=== PATIENT | male | born 1945 | race Caucasian/White ===

== ENCOUNTER 2017-04-28 23:16 | Inpatient (IN) ==
[2017-04-28] MEDS ORDERED: Ipratropium/Albuterol Neb 3 ML IH STA (23:33)
[2017-04-28] MEDS ORDERED: Ipratropium/Albuterol Neb 3 ML ONE (23:33)
[2017-04-28] MEDS ORDERED: methylPREDNISolone 125 MG/2 ML VIAL ONE (23:33)
[2017-04-28] MEDS ORDERED: methylPREDNISolone 125 MG/2 ML VIAL IVP ONE (23:33)
--- NOTE | 2017-04-28 23:38 | Emergency Department Note ---
Disposition Clinical Impression: COPD with exacerbation, Acute exacerbation of chronic obstructive airways disease, Acute respiratory failure with hypoxemia Leukocytosis, unspecified Qualifiers: Leukocytosis type: bandemia Qualified Code(s): D72.825 - Bandemia Disposition: Admitted As Inpatient Condition: Fair Referrals: NONE,PCP [Non-Partnered Physician] - Forms: ED Satisfaction Letter Time of Disposition: 02:22 (Dr Encinas) SOB HPI - General Chief Complaint: ED Shortness of Breath/Dyspnea Stated Complaint: Dyspnea onset 2-3 days, worse today Time Seen by Provider: 04/28/17 23:29 Source: patient Mode of arrival: EMS Limitations: no limitations Nursing Notes Reviewed: Yes Vital Signs Reviewed: Yes - History of Present Illness Pt Subjective Complaint: shortness of breath Onset (ago): day(s) (2) Context: recent illness Severity: severe Consistency/Duration: gradually worsening Improves with: oxygen, bronchodilators, upright position Worsens with: exertion Known history of: COPD Associated symptoms: Reports: wheezing. Denies: chest pain, pain with inspiration, fever, cough, sputum production Treatment prior to arrival: oxygen, NIPPV Cough present: Yes Cough Description: Involuntary Cough Frequency: Intermittent Sputum production: No - Related Data Home Medications Medication Instructions Recorded Confirmed Aspirin 325 mg PO DAILY 05/31/16 04/29/17 Atorvastatin [Lipitor] 80 mg PO DAILY 09/06/16 04/29/17 amLODIPine [Norvasc] 5 mg PO DAILY 09/06/16 04/29/17 Albuterol Sulfate [Ventolin Hfa] 2 puff IH Q4H PRN 09/14/16 04/05/17 Apixaban [Eliquis] 5 mg PO DAILY 12/09/16 04/29/17 BuPROPion XL (24 HR) [Wellbutrin 150 mg PO DAILY 04/29/17 04/29/17 XL] Buspirone HCl [Buspar] 10 mg PO BID 04/29/17 04/29/17 Esomeprazole Magnesium [Nexium 20 mg PO 04/29/17 24Hr] Isosorbide MONOnitrate [Isosorbide 30 mg PO DAILY 04/29/17 04/29/17 Mononitrate] Tamsulosin [Flomax] 0.4 mg PO DAILY 04/29/17 04/29/17 Previous Rx's Medication Instructions Recorded Ipratropium/Albuterol Neb [Duoneb] 3 ml IH Q4HR 30 Days inhsol 06/04/16 Metoprolol [Lopressor] 25 mg PO BID #60 tablet 09/28/16 Allergies Allergy/AdvReac Type Severity Reaction Status Date / Time No Known Allergies Allergy Verified 04/05/17 16:08 All systems ED: reviewed and negative except as stated. Past Medical History - Past Medical History Medical history: Reports: atrial fibrillation, COPD, GERD, hyperlipidemia, hypertension, myocardial infarction Surgical history: Reports: angioplasty/stent, other Psychiatric history: Reports: no psych history - Social History Smoking Status: Former smoker Smokeless Tobacco Status: No Alcohol use: Reports: none Drug use: Reports: none Physical Exam - General Limitations: no limitations, language barrier General appearance: alert, in distress - Head Head exam: atraumatic, normocephalic - Eye Eye exam: Present: normal appearance, PERRL, EOMI. Absent: scleral icterus, conjunctival injection - ENT ENT exam: normal exam, normal oropharynx - Neck Neck exam: Present: normal inspection, full ROM, trachea midline. Absent: thyromegaly - Chest Chest inspection: Present: normal inspection, symmetric chest wall rise - Respiratory Respiratory exam: Present: respiratory distress - Expanded Respiratory Exam Location: rhonchi: Right, Upper, decreased breath sounds: Left, Right, Upper, Lower - Cardiovascular Cardiovascular exam: Present: tachycardia, normal heart sounds. Absent: JVD - Abdominal Exam Abdominal exam: Present: soft, Non-Tender, distention, hypoactive bowel sounds - Extremities Exam Extremities exam: Present: normal inspection, full ROM - Neurological Exam Neurological exam: Present: alert, oriented X3 - Skin Skin exam: Present: warm, dry, intact Course - Reevaluation(s) Reevaluation #1: Initial DuoNeb treatment with BiPAP improved his aeration but still had significant work of breathing. ABG indicates respiratory acidosis. Plan will be to increase his expiratory pressure 272 increase by mouth to levels and reassess. I did discuss with the that there is potential intubation if he becomes fatigued with no improvement with the current BiPAP treatment. Time: 00:48 Reevaluation #2: Improve work of breathing. ABG shows improved pH as well as bicarbonate and PCO2 levels. The patient will be started on Valtrex and will be admitted to the hospital for further stabilization of his acute respiratory acidosis most likely secondary to COPD exacerbation. Time: 01:45 Vital Signs O2 Sat by Pulse Oximetry 90 04/28/17 23:25 Temperature 97.3 F L 04/28/17 23:27 Pulse Rate 121 04/29/17 01:00 Respiratory Rate 34 04/29/17 01:00 Blood Pressure 105/49 04/29/17 01:00 O2 Sat by Pulse Oximetry 98 04/29/17 00:30 Oxygen Delivery Oxygen Delivery Bipap Procedures - ABG Interpretation ABG Interpretation 1 Interpretation: respiratory acidosis Shortness of Breath/Dyspnea - Differential Diagnosis Likely: acute exacerbation of chronic obstructive airways disease - Medical Records Medical records reviewed: Yes I reviewed the patient's medical records. - Lab Data Result diagrams: 04/29/17 00:25 04/29/17 00:25 Lab Results 04/29/17 04/29/17 04/29/17 Range/Units 00:25 00:25 00:25 WBC 30.0 H* (4.3-11.1) K/mcL RBC 4.36 (4.19-5.50) M/mcL Hgb 13.1 (12.9-16.9) g/dL Hct 40.7 (37.5-50.1) % MCV 93.3 (83.0-100.0) fL MCH 30.0 (28.0-33.3) pg MCHC 32.2 (31.6-35.5) g/dL RDW 15.1 H (11.5-14.5) % Plt Count 267 (140-400) K/mcL MPV 11.5 (9.4-12.4) fL Seg Neutrophils % 57.0 % Band Neutrophils % 12.0 H (0-4) % Lymphocytes % 18.0 % Monocytes % 7.0 % Eosinophils % 4.0 % Basophils % 1.0 % Myelocytes % 1.0 H (0) % Neutrophils # 20.7 H (1.6-8.9) K/mcL Lymphocytes # 5.4 H (0.6-4.6) K/mcL Monocytes # 2.1 H (0.0-1.3) K/mcL Eosinophils # 1.2 H (0.0-0.6) K/mcL Basophils # 0.3 H (0.0-0.2) K/mcL Nucleated RBCs/100 WBC 0.1 H (0) /100 WBC Toxic Granulation Present A (Not Present) Toxic Vacuolation Present A (Not Present) Platelet Estimate Normal (Normal) Large Platelets Present A (Not Present) Poikilocytosis 1+ A (Not Present) Anisocytosis 1+ A (Not Present) Sample Site ABG pH (7.32-7.45) pH Units ABG pCO2 (35-45) mmHg ABG pO2 (85-104) mmHg ABG HCO3 (21-27) mEq/L ABG Total CO2 (20-26) mEq/L ABG O2 Saturation (95-98) % ABG Base Excess (-2 to 3) mEq/L Roberth Test O2 Delivery Device Inspired O2 (1-15=lpm [id number]=%) Sodium (136-145) mEq/L Potassium (3.5-5.1) mEq/L Chloride (98-107) mEq/L Carbon Dioxide (23-29) mEq/L BUN (8-23) mg/dL Creatinine (0.70-1.30) mg/dL Est GFR ( Amer) (> 60) Est GFR (Non-Af Amer) (> 60) BUN/Creatinine Ratio (6-26) Glucose (70-105) mg/dL Calculated Osmolality (280-300) Lactic Acid (0.5-2.2) mmol/L Calcium (8.6-10.3) mg/dL Total Bilirubin (0.3-1.0) mg/dL AST (13-39) Units/L ALT (7-52) Units/L Alkaline Phosphatase (34-104) Units/L Troponin I < 0.03 (< 0.04) ng/mL B-Natriuretic Peptide 138 H (Less than 100) pg/mL Serum Total Protein (6.4-8.9) g/dL Albumin (3.5-5.7) g/dL Globulin (2.4-3.5) g/dL Albumin/Globulin Ratio (1.1-2.2) Person Notif of Crit 04/29/17 04/29/17 04/29/17 Range/Units 00:25 00:27 01:34 WBC (4.3-11.1) K/mcL RBC (4.19-5.50) M/mcL Hgb (12.9-16.9) g/dL Hct (37.5-50.1) % MCV (83.0-100.0) fL MCH (28.0-33.3) pg MCHC (31.6-35.5) g/dL RDW (11.5-14.5) % Plt Count (140-400) K/mcL MPV (9.4-12.4) fL Seg Neutrophils % % Band Neutrophils % (0-4) % Lymphocytes % % Monocytes % % Eosinophils % % Basophils % % Myelocytes % (0) % Neutrophils # (1.6-8.9) K/mcL Lymphocytes # (0.6-4.6) K/mcL Monocytes # (0.0-1.3) K/mcL Eosinophils # (0.0-0.6) K/mcL Basophils # (0.0-0.2) K/mcL Nucleated RBCs/100 WBC (0) /100 WBC Toxic Granulation (Not Present) Toxic Vacuolation (Not Present) Platelet Estimate (Normal) Large Platelets (Not Present) Poikilocytosis (Not Present) Anisocytosis (Not Present) Sample Site L Radial L Radial ABG pH 7.18 L* 7.27 L (7.32-7.45) pH Units ABG pCO2 72 H* 55 H (35-45) mmHg ABG pO2 54 L 132 H D (85-104) mmHg ABG HCO3 27 25 (21-27) mEq/L ABG Total CO2 29 H 27 H (20-26) mEq/L ABG O2 Saturation 77 L 98 (95-98) % ABG Base Excess -4 L -3 L (-2 to 3) mEq/L Roberth Test Positive Positive O2 Delivery Device BiPAP BiPAP Inspired O2 36.0 36.0 (1-15=lpm [id number]=%) Sodium 136 (136-145) mEq/L Potassium 4.1 (3.5-5.1) mEq/L Chloride 101 (98-107) mEq/L Carbon Dioxide 27 (23-29) mEq/L BUN 12 (8-23) mg/dL Creatinine 1.51 H (0.70-1.30) mg/dL Est GFR ( Amer) 55 L (> 60) Est GFR (Non-Af Amer) 46 L (> 60) BUN/Creatinine Ratio 8 (6-26) Glucose 172 H (70-105) mg/dL Calculated Osmolality 286 (280-300) Lactic Acid (0.5-2.2) mmol/L Calcium 9.9 (8.6-10.3) mg/dL Total Bilirubin 1.1 H (0.3-1.0) mg/dL AST 17 (13-39) Units/L ALT 10 (7-52) Units/L Alkaline Phosphatase 242 H (34-104) Units/L Troponin I (< 0.04) ng/mL B-Natriuretic Peptide (Less than 100) pg/mL Serum Total Protein 6.4 (6.4-8.9) g/dL Albumin 4.1 (3.5-5.7) g/dL Globulin 2.3 L (2.4-3.5) g/dL Albumin/Globulin Ratio 1.8 (1.1-2.2) Person Notif of Crit dr. sena 04/29/17 Range/Units 01:35 WBC (4.3-11.1) K/mcL RBC (4.19-5.50) M/mcL Hgb (12.9-16.9) g/dL Hct (37.5-50.1) % MCV (83.0-100.0) fL MCH (28.0-33.3) pg MCHC (31.6-35.5) g/dL RDW (11.5-14.5) % Plt Count (140-400) K/mcL MPV (9.4-12.4) fL Seg Neutrophils % % Band Neutrophils % (0-4) % Lymphocytes % % Monocytes % % Eosinophils % % Basophils % % Myelocytes % (0) % Neutrophils # (1.6-8.9) K/mcL Lymphocytes # (0.6-4.6) K/mcL Monocytes # (0.0-1.3) K/mcL Eosinophils # (0.0-0.6) K/mcL Basophils # (0.0-0.2) K/mcL Nucleated RBCs/100 WBC (0) /100 WBC Toxic Granulation (Not Present) Toxic Vacuolation (Not Present) Platelet Estimate (Normal) Large Platelets (Not Present) Poikilocytosis (Not Present) Anisocytosis (Not Present) Sample Site ABG pH (7.32-7.45) pH Units ABG pCO2 (35-45) mmHg ABG pO2 (85-104) mmHg ABG HCO3 (21-27) mEq/L ABG Total CO2 (20-26) mEq/L ABG O2 Saturation (95-98) % ABG Base Excess (-2 to 3) mEq/L Roberth Test O2 Delivery Device Inspired O2 (1-15=lpm [id number]=%) Sodium (136-145) mEq/L Potassium (3.5-5.1) mEq/L Chloride (98-107) mEq/L Carbon Dioxide (23-29) mEq/L BUN (8-23) mg/dL Creatinine (0.70-1.30) mg/dL Est GFR ( Amer) (> 60) Est GFR (Non-Af Amer) (> 60) BUN/Creatinine Ratio (6-26) Glucose (70-105) mg/dL Calculated Osmolality (280-300) Lactic Acid 2.6 H (0.5-2.2) mmol/L Calcium (8.6-10.3) mg/dL Total Bilirubin (0.3-1.0) mg/dL AST (13-39) Units/L ALT (7-52) Units/L Alkaline Phosphatase (34-104) Units/L Troponin I (< 0.04) ng/mL B-Natriuretic Peptide (Less than 100) pg/mL Serum Total Protein (6.4-8.9) g/dL Albumin (3.5-5.7) g/dL Globulin (2.4-3.5) g/dL Albumin/Globulin Ratio (1.1-2.2) Person Notif of Crit - Radiology Data Radiology results reviewed: Yes I reviewed the patient's radiology results. Abdomen X-Ray 04/29/17 00:00 IMPRESSION: Mild distal colonic stool with moderate proximal colonic distention . No small bowel distention or evidence of obstruction. D/ / Sukumar Hay MD / Sukumar Hay MD Interpreting Provider: Sukumar Hay MD Chest X-Ray 04/29/17 00:00 IMPRESSION: No acute cardiopulmonary disease. D/ / Sukumar Hay MD / Sukumar Hay MD Interpreting Provider: Sukumar Hay MD - EKG Data EKG attestation: Yes I reviewed and interpreted this EKG. Rate: Reports: tachycardia Rhythm: Reports: NSR When compared to previous EKG there are: no significant changes Interpretation: Reports: nonspecific ST-T wave changes Critical Care Time Critical Care Time: Yes Total Critical Care Time: 60 Attestation: Critical care performed: Time is exclusive of separately billable procedures. Time includes: direct patient care, patient reassessment, coordination of patient care, interpretation of data (laboratory data, radiology data, and respiratory data), review of patient's medical records, medical consultation and documentation of patient care. Procedures included in critical care time: Procedures excluded from critical care time:
[2017-04-28] MEDS ORDERED: *HR* LORazepam 2 MG/ML VIAL ONE (23:45)
[2017-04-28] MEDS ORDERED: *HR* LORazepam 2 MG/ML VIAL IVP ONE (23:47)
[2017-04-29] MEDS ORDERED: 0.9 % Sodium Chloride 500 ML ONE ×2 (00:09→01:33)
[2017-04-29 00:31] LABS: ABG Base Excess -4 mEq/L (-2 to 3); ABG HCO3 27 mEq/L (21-27); ABG Oxygen Saturation 77 % (95-98); ABG PCO2 72 mmHg (35-45); ABG PH 7.18 pH Units (7.32-7.45); ABG PO2 54 mmHg (85-104); ABG TCO2 29 mEq/L (20-26)
[2017-04-29 00:34] LABS: Hematocrit 40.7 % (37.5-50.1); Hemoglobin 13.1 g/dL (12.9-16.9); Mean Corpuscular HGB Conc 32.2 g/dL (31.6-35.5); Mean Corpuscular Volume 93.3 fL (83.0-100.0); Mean Platelet Volume 11.5 fL (9.4-12.4); Nucleated Red Blood Cells 0.1 /100 WBC (0); Platelet Count 267 K/mcL (140-400); Red Blood Count 4.36 M/mcL (4.19-5.50); Red Cell Distribution Width 15.1 % (11.5-14.5)
[2017-04-29 00:55] LABS: Albumin 4.1 g/dL (3.5-5.7); Albumin/Globulin Ratio 1.8 (1.1-2.2); Bilirubin,Total 1.1 mg/dL (0.3-1.0); Calcium 9.9 mg/dL (8.6-10.3); Globulin 2.3 g/dL (2.4-3.5); Potassium 4.1 mEq/L (3.5-5.1); Total Protein 6.4 g/dL (6.4-8.9)
[2017-04-29] MEDS ORDERED: *HR* LORazepam 2 MG/ML VIAL IVP STA (00:57)
[2017-04-29 01:01] LABS: Anisocytosis 1+ (Not Present); Basophils # 0.3 K/mcL (0.0-0.2); Eosinophils # 1.2 K/mcL (0.0-0.6); Large Platelets Present (Not Present); Lymphocytes # 5.4 K/mcL (0.6-4.6); Monocytes # 2.1 K/mcL (0.0-1.3); Neutrophils # 20.7 K/mcL (1.6-8.9); Platelet Estimate Normal (Normal)
[2017-04-29 01:02] LABS: Toxic Granulation Present (Not Present); Toxic Vacuolation Present (Not Present)
[2017-04-29 01:03] LABS: Poikilocytosis 1+ (Not Present)
[2017-04-29] MEDS ORDERED: Levofloxacin 750 MG/150 ML 750 MG/150 ML BAG IVPB ONE (01:11)
[2017-04-29 01:37] LABS: ABG Base Excess -3 mEq/L (-2 to 3); ABG HCO3 25 mEq/L (21-27); ABG Oxygen Saturation 98 % (95-98); ABG PCO2 55 mmHg (35-45); ABG PH 7.27 pH Units (7.32-7.45); ABG PO2 132 mmHg (85-104); ABG TCO2 27 mEq/L (20-26)
[2017-04-29] MEDS ORDERED: 0.9 % Sodium Chloride 1,000 ML IVC ONE (02:03)
[2017-04-29] MEDS ORDERED: Levalbuterol Neb 1.25 MG/3 ML IH STA (02:07)
[2017-04-29] MEDS ORDERED: Ondansetron 4 MG/2 ML VIAL IVP PRN (06:09)
[2017-04-29] MEDS ORDERED: Acetaminophen 325 MG TABLET PO PRN (06:09)
[2017-04-29] MEDS ORDERED: 0.9 % Sodium Chloride 1,000 ML IVC SCH (06:09)
[2017-04-29] MEDS ORDERED: Naloxone 0.4 MG/ML INJ IVP PRN (06:09)
[2017-04-29] MEDS ORDERED: *HR* LORazepam 2 MG/ML VIAL ONE (06:09)
[2017-04-29] MEDS ORDERED: methylPREDNISolone 125 MG/2 ML VIAL ONE (06:09)
[2017-04-29] MEDS ORDERED: Ipratropium/Albuterol Neb 3 ML ONE (06:09)
[2017-04-29] MEDS ORDERED: MOM Conc 10 ML UD.LIQ PO PRN (06:09)
[2017-04-29] MEDS ORDERED: methylPREDNISolone 125 MG/2 ML VIAL IVP SCH (07:00)
[2017-04-29] MEDS: Aspirin 325 MG TABLET PO SCH (08:46)
[2017-04-29] MEDS: BuPROPion XL (24 HR) 150 MG TABLET PO SCH (08:46)
[2017-04-29] MEDS: Isosorbide MONOnitrate (24 HR) 30 MG TAB.ER.24H PO SCH (08:46)
[2017-04-29] MEDS: amLODIPine 5 MG TABLET PO SCH (08:47)
[2017-04-29] MEDS: Apixaban 5 MG TABLET PO SCH (08:57)
[2017-04-29] MEDS: *HR* HYDROcodone/Acet 5/325 mg TABLET PO PRN ×2 (08:58→20:56)
[2017-04-29] MEDS ORDERED: BuPROPion XL (24 HR) 150 MG TABLET PO SCH (09:00)
[2017-04-29] MEDS ORDERED: Isosorbide MONOnitrate (24 HR) 30 MG TAB.ER.24H PO SCH (09:00)
[2017-04-29] MEDS ORDERED: amLODIPine 5 MG TABLET PO SCH (09:00)
[2017-04-29] MEDS ORDERED: Apixaban 5 MG TABLET PO SCH (09:00)
[2017-04-29] MEDS ORDERED: Aspirin 325 MG TABLET PO SCH (09:00)
[2017-04-29] MEDS ORDERED: Ipratropium/Albuterol Neb 3 ML IH SCH (11:00)
--- NOTE | 2017-04-29 11:47 | Internal Med History&Physical ---
Date of Encounter: 04/29/17 Time of Encounter: 11:10 Assessment and Plan (1) COPD with exacerbation Current visit: Yes Status: Acute He was given Levaquin in emergency room. We will order chest CT to further evaluate. (2) Leukocytosis Current visit: Yes Status: Acute He was given Levaquin in the emergency room. Will order chest, abdomen, and pelvis CT to further evaluate. Qualifiers: Leukocytosis type: bandemia Qualified Code(s): D72.825 - Bandemia (3) Azotemia Current visit: Yes Status: Acute Creatinine elevated at 1.51 in emergency room. It was normal at 0.79 on 2016. We will recheck labs in a.m. (4) HTN (hypertension) Current visit: No Status: Chronic Continue amlodipine and Lopressor. Qualifiers: Hypertension type: essential hypertension Qualified Code(s): I10 - Essential (primary) hypertension (5) DVT (deep venous thrombosis) Current visit: Yes Status: Acute Continue Eliquis Qualifiers: DVT location: lower extremity Affected thrombotic vein of extremity: unspecified vein of extremity Chronicity: chronic Laterality: unspecified laterality Qualified Code(s): I82.509 - 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 of unspecified lower extremity (6) BPH (benign prostatic hyperplasia) Current visit: Yes Status: Chronic Continue Flomax Qualifiers: Lower urinary tract symptom presence: symptoms absent Qualified Code(s): N40.0 - Benign prostatic hyperplasia without lower urinary tract symptoms Internal Medicine - H&P: HPI Chief complaint: Dyspnea, leukocytosis, azotemia Admitted From: Emergency Dept Plans for Post Hospital Care: Home History of present illness: Mr. Box is a 72 year old male who came to emergency room stating he had onset of dyspnea earlier in the day while doing routine activities. There was no significant cough or chest pain. He was evaluated in emergency room and was felt to have exacerbation of COPD. He was admitted to [facility] floor for ongoing care needs. His respiratory history is significant for having smoked from age [age] up to 3 packs per day. He had spirometry 01/05/2016 which showed FEV1 32% and FVC 52% with ratio of 0.45. He wears oxygen 24/7 at home. He had a lung mass biopsy November 2016 which did not show malignancy. The procedure was completed by pneumothorax. Past Med Surg Social Fam HX - Past Medical History Medical history: atrial fibrillation, COPD, GERD, hyperlipidemia, hypertension, myocardial infarction Psychiatric history: no psych history - Past Surgical History Surgical History: angioplasty/stent, other - Social History Smoking Status: Former smoker Smokeless Tobacco Status: No Alcohol use: none Drug use: none - Family History Mother Living Status: Hx Family Cardiac Disorders: Yes (chf) Brother Living Status: Still Living Hx Family Endocrine Disorder: Yes (dm) Internal Medicine - H&P: Meds Aspirin 81 mg PO DAILY 05/31/16 [History] Ipratropium/Albuterol Neb [Duoneb] 3 ml IH Q4HR 30 Days inhsol 06/04/16 [Rx] Atorvastatin [Lipitor] 80 mg PO DAILY 09/06/16 [History] amLODIPine [Norvasc] 5 mg PO DAILY 09/06/16 [History] Albuterol Sulfate [Ventolin Hfa] 2 puff IH Q4H PRN 09/14/16 [History] Metoprolol [Lopressor] 25 mg PO BID #60 tablet 09/28/16 [Rx] Apixaban [Eliquis] 5 mg PO BID 12/09/16 [History] BuPROPion XL (24 HR) [Wellbutrin XL] 150 mg PO DAILY 04/29/17 [History] Buspirone HCl [Buspar] 10 mg PO BID 04/29/17 [History] Esomeprazole Magnesium [Nexium 24Hr] 40 mg PO DAILY 04/29/17 [History] Isosorbide MONOnitrate [Isosorbide Mononitrate] 30 mg PO DAILY 04/29/17 [History ] Tamsulosin [Flomax] 0.4 mg PO DAILY 04/29/17 [History] 3 Allergy/AdvReac Type Severity Reaction Status Date / Time No Known Allergies Allergy Verified 04/05/17 16:08 All Systems PM: A 10-system review of systems was performed and is negative for pertinent findings except as documented above in the HPI. Review of systems: Gen.: He states his weight has been stable the past few months Cardiovascular: He has history of hypertension and known ASHD status post [place] approximately 2007. 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 He has had aortic endograft done for aortic aneurysm. He had DVT after the CABG surgery and is now on Eliquis. He denies heart failure or pulmonary embolus. He had an echocardiogram 11/16/2016 which showed LVEF of 65%. There was [id number] tricuspid regurgitation and elevated RVSP at 43 mmHg. Respiratory: As per history of present illness GI: He has constipation and GERD. He denies other disorders of his liver gallbladder or exocrine pancreas. He was told in the past he had "abdominal mass " but does not know details. : He denies known kidney or bladder disorders. He had prostate biopsy in the past without malignancy found. He was recently started on Flomax for BPH. He denies chronic kidney disease or known azotemia. Neurologic: He denies large distribution strokes or seizures. Endocrine: He has hyperlipidemia but denies diabetes or thyroid disease Hematology/oncology: He denies blood disorders cancers or anemia Psychiatric: He has anxiety and depression but denies other mental health issues Muscle skeletal: He has DJD. He had a work accident several years ago with injury to his back and fracture of his left foot which required surgical intervention. He denies gout or other bone joint or muscle disorders. - Constitutional Vitals: Temp Pulse Resp BP Pulse Ox 97.4 F L 79 18 106/76 96 04/29/17 10:53 04/29/17 10:53 04/29/17 11:11 04/29/17 10:53 04/29/17 11:11 Exam: Gen.: He is a well-developed well-nourished male lying in bed who appears slightly dyspneic at rest HEENT: Head is atraumatic and normocephalic. Eyes: EOMI. There is no scleral icterus. Mouth: Mucosa is moist. Neck: Supple and nontender. There is no thyromegaly or adenopathy noted. Heart: Regular without murmurs gallops or ectopics Lungs: No wheezes or crackles are heard. He has prolonged expiratory phase but no significant wheezing. Breath sounds are diminished. There is no egophony. Abdomen: Soft and nontender. No masses or guarding are noted. Extremities: There is no cyanosis edema or clubbing noted. Dorsalis pedis and posttibial pulses are 1-2 over 2 bilaterally. He has slight deformity of his left lateral heel area from previous injury with surgery. Neurologic: Mental status: He is talkative and a good historian. Cranial nerves : Smile is symmetric. Forehead wrinkles bilaterally. Tongue protrudes midline. EOMI. Motor: There is no pronator drift. Cerebellar: Finger to nose is intact bilaterally. Skin: Warm and dry Internal Med - H&P Results - Labs CBC & Chem 7: 04/29/17 00:25 04/29/17 00:25
[2017-04-29] MEDS: *HR* LORazepam 1 MG TABLET PO PRN (20:43)
[2017-04-29] MEDS: Lactobacillus 1 EACH CAP.SPRINK PO SCH (20:44)
[2017-04-29] MEDS: Azithromycin 500 MG in D5% in Water 250 ML IVPB SCH (20:44)
[2017-04-30] MEDS: Piperacillin/Tazobactam 3.375 GM in D5% in Water (Mini-Bag+) 100 ML IVPB SCH ×3 (00:47→17:48)
[2017-04-30 06:08] LABS: Basophils % 0.1 %; Hematocrit 34.3 % (37.5-50.1); Hemoglobin 11.2 g/dL (12.9-16.9); Immature Granulocytes % 0.8 % (0-4); Lymphocytes # 1.2 K/mcL (0.6-4.6); Lymphocytes % 5.4 %; Mean Corpuscular HGB Conc 32.7 g/dL (31.6-35.5); Mean Platelet Volume 11.8 fL (9.4-12.4); Monocytes # 1.4 K/mcL (0.0-1.3); Neutrophils # 19.7 K/mcL (1.6-8.9); Platelet Count 182 K/mcL (140-400); Red Blood Count 3.73 M/mcL (4.19-5.50); Red Cell Distribution Width 15.7 % (11.5-14.5); Segmented Neutrophils % 87.7 %
[2017-04-30 06:48] LABS: BUN/Creatinine Ratio 19 (6-26); Blood Urea Nitrogen 19 mg/dL (8-23); Calcium 9.1 mg/dL (8.6-10.3); Carbon Dioxide 27 mEq/L (23-29); Chloride 107 mEq/L (98-107); Glucose 133 mg/dL (70-105); Magnesium 2.3 mg/dL (1.6-2.6); Osmolality,Calculated 296 (280-300); Potassium 4.4 mEq/L (3.5-5.1); Sodium 141 mEq/L (136-145); eGFR For African Americans > 60 (> 60); eGFR For Non-African Americans > 60 (> 60)
[2017-04-30] MEDS: amLODIPine 5 MG TABLET PO SCH (07:55)
[2017-04-30] MEDS: Lactobacillus 1 EACH CAP.SPRINK PO SCH ×2 (07:55→21:19)
[2017-04-30] MEDS: BuPROPion XL (24 HR) 150 MG TABLET PO SCH (07:55)
[2017-04-30] MEDS: Aspirin 325 MG TABLET PO SCH (07:56)
[2017-04-30] MEDS: Isosorbide MONOnitrate (24 HR) 30 MG TAB.ER.24H PO SCH (07:56)
[2017-04-30] MEDS: Apixaban 5 MG TABLET PO SCH (08:10)
[2017-04-30 08:13] LABS: Platelet Estimate Normal (Normal)
--- NOTE | 2017-04-30 10:04 | Internal Med Progress Note ---
Date of Encounter: 04/30/17 Time of Encounter: 11:00 - Assessment and plan (1) COPD with exacerbation Current Visit: Yes Status: Acute (2) Leukocytosis Current Visit: Yes Status: Acute Qualifiers: Leukocytosis type: bandemia Qualified Code(s): D72.825 - Bandemia (3) Azotemia Current Visit: Yes Status: Acute (4) HTN (hypertension) Current Visit: No Status: Chronic Qualifiers: Hypertension type: essential hypertension Qualified Code(s): I10 - Essential (primary) hypertension (5) DVT (deep venous thrombosis) Current Visit: Yes Status: Acute Qualifiers: DVT location: lower extremity Affected thrombotic vein of extremity: unspecified vein of extremity Chronicity: chronic Laterality: unspecified laterality Qualified Code(s): I82.509 - 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 of unspecified lower extremity (6) BPH (benign prostatic hyperplasia) Current Visit: Yes Status: Chronic Qualifiers: Lower urinary tract symptom presence: symptoms absent Qualified Code(s): N40.0 - Benign prostatic hyperplasia without lower urinary tract symptoms - Constitutional Vitals: Temp Pulse Resp BP Pulse Ox 98.3 F 92 20 113/70 91 04/30/17 06:40 04/30/17 06:40 04/30/17 06:40 04/30/17 06:40 04/30/17 06:40 Internal Medicine: Result - Labs CBC & Chem 7: 04/30/17 05:00 04/30/17 05:00 Labs: Short CBC 04/30/17 Range/Units 05:00 WBC 22.5 H (4.3-11.1) K/mcL Hgb 11.2 L D (12.9-16.9) g/dL Hct 34.3 L (37.5-50.1) % Plt Count 182 (140-400) K/mcL Neutrophils # 19.7 H (1.6-8.9) K/mcL BMP 04/30/17 05:00 Sodium 141 Potassium 4.4 Chloride 107 Carbon Dioxide 27 BUN 19 Creatinine 1.01 Glucose 133 H Calcium 9.1 - ABG Interpretation ABG results: ABG ABG pH 7.27 pH Units (7.32-7.45) L 04/29/17 01:34 ABG pCO2 55 mmHg (35-45) H 04/29/17 01:34 ABG pO2 132 mmHg (85-104) H D 04/29/17 01:34 ABG O2 Saturation 98 % (95-98) 04/29/17 01:34 - Impressions Impressions Abdomen/Pelvis CT 04/29/17 11:41 IMPRESSION: Increasing size of abdominal aortic aneurysm compared to prior study, despite the presence of aorto endograft. The right limb extension of the endograft also does not demonstrate complete apposition with the remainder of graft, similar to prior. Recommend vascular surgery consultation. No endoleak was seen on prior study by report Mild colonic wall thickening, either due to incomplete distention or wall thickening from underlying inflammatory change from colitis. Tiny Nonobstructing renal calculi Subtle lobular contour of the liver, raising the question of mild cirrhosis RECOMMENDATIONS: As part of a clinical quality rn process, the following is included for reference: Managing Abdominal Aortic Aneurysms 2.6-2.9 cm: Every 5 years* 3.0-3.4 cm: Every 3 years. 3.5-3.9 cm: Every 1 year. 4.0-4.4 cm: Every 1 year. Recommend vascular consultation. 4.5-5.4 cm: Every 6 months. Recommend vascular consultation. Greater than or equal to 5.5 cm: Referral to vascular surgeon. *For abdominal aortas with maximum diameter of 2.6-2.9 cm meeting criteria for AAA (>50% of proximal normal segment). Reference: J Vasc Surg. 2008;50(4 Suppl):S2-49 D/ / Bro Rowley MD / Bro Rowley MD Interpreting Provider: Bro Rowley MD Chest CT 04/29/17 11:41 IMPRESSION: Patchy opacities throughout the lungs, suggestive of postinflammatory -infectious change. There is underlying severe emphysema Scattered nodular densities are seen throughout the lungs. There is a growing nodular density seen in the right upper lobe adjacent to a large bleb. Previously the nodule measured 8-9 mm, however it now measures 1.5 cm. Recommend PET-CT when the patient is able Resolution of the elongated nodule in the left lower lobe described previously D/ / Bro Rowley MD / Bro Rowley MD Interpreting Provider: Bro Rowley MD Consult Discharge Plan - Plan Referrals: Solomon Smith, PRISM INSPECTOR [Primary Care Provider] - 1 week
--- NOTE | 2017-04-30 11:11 | Internal Med Progress Note ---
Date of Encounter: 04/30/17 Time of Encounter: 11:00 - Assessment and plan (1) COPD with exacerbation Current Visit: Yes Status: Acute Assessment and plan: April 30. He was started on Zosyn and Zithromax with lactobacillus last evening based on CT scan report. Anticipate discharge home tomorrow. (2) Leukocytosis Current Visit: Yes Status: Acute Assessment and plan: April 30. WBC decreased to 22.5. Continue antibiotics. Anticipate discharge home tomorrow if stable. Qualifiers: Leukocytosis type: bandemia Qualified Code(s): D72.825 - Bandemia (3) Azotemia Current Visit: Yes Status: Acute Assessment and plan: April 30. Creatinine now normal at 1.01. Continue to monitor. (4) HTN (hypertension) Current Visit: No Status: Chronic Assessment and plan: April 30. Blood pressure stable. Continue Norvasc, Imdur, and Lopressor. Qualifiers: Hypertension type: essential hypertension Qualified Code(s): I10 - Essential (primary) hypertension (5) DVT (deep venous thrombosis) Current Visit: Yes Status: Acute Assessment and plan: April 30. Continue Eliquis Qualifiers: DVT location: lower extremity Affected thrombotic vein of extremity: unspecified vein of extremity Chronicity: chronic Laterality: unspecified laterality Qualified Code(s): I82.509 - 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 of unspecified lower extremity (6) BPH (benign prostatic hyperplasia) Current Visit: Yes Status: Chronic Assessment and plan: April 30. Continue Flomax Qualifiers: Lower urinary tract symptom presence: symptoms absent Qualified Code(s): N40.0 - Benign prostatic hyperplasia without lower urinary tract symptoms (7) Abdominal aortic aneurysm Current Visit: Yes Status: Chronic Assessment and plan: April 30. He had endograft intervention several years ago. CT scan shows enlargement to 8.1 centimeters compared to a May [address] CT. I spoke with Dr. Cornejo's office and inquired if transfer to [facility] should be done. After discussion with physician the staff reported this will be followed in 1-2 weeks at an outpatient office visit. Qualifiers: Presence of rupture: without rupture Qualified Code(s): I71.4 - Abdominal aortic aneurysm, without rupture (8) Nodule of right lung Current Visit: Yes Status: Acute Assessment and plan: April 30. A right upper lobe nodule has increased to 15 mm from previous measurement of 8-9 mm on a October 2016 CT. His PCP And/or surgeon can order a PET /CT or other intervention. - Subjective Interval history: April 30. He has no new complaints and feels better. - Constitutional Vitals: Temp Pulse Resp BP Pulse Ox 97.7 F 88 20 118/83 96 04/30/17 09:58 04/30/17 09:58 04/30/17 09:58 04/30/17 09:58 04/30/17 09:58 Exam: He is resting comfortably on the side of the bed and appears less dyspneic. His affect is bright and cheerful. I reviewed his medications, lab results, and CT reports. Internal Medicine: Result - Labs CBC & Chem 7: 04/30/17 05:00 04/30/17 05:00 Labs: Short CBC 04/30/17 Range/Units 05:00 WBC 22.5 H (4.3-11.1) K/mcL Hgb 11.2 L D (12.9-16.9) g/dL Hct 34.3 L (37.5-50.1) % Plt Count 182 (140-400) K/mcL Neutrophils # 19.7 H (1.6-8.9) K/mcL BMP 04/30/17 05:00 Sodium 141 Potassium 4.4 Chloride 107 Carbon Dioxide 27 BUN 19 Creatinine 1.01 Glucose 133 H Calcium 9.1 - ABG Interpretation ABG results: ABG ABG pH 7.27 pH Units (7.32-7.45) L 04/29/17 01:34 ABG pCO2 55 mmHg (35-45) H 04/29/17 01:34 ABG pO2 132 mmHg (85-104) H D 04/29/17 01:34 ABG O2 Saturation 98 % (95-98) 04/29/17 01:34 - Impressions Impressions Abdomen/Pelvis CT 04/29/17 11:41 IMPRESSION: Increasing size of abdominal aortic aneurysm compared to prior study, despite the presence of aorto endograft. The right limb extension of the endograft also does not demonstrate complete apposition with the remainder of graft, similar to prior. Recommend vascular surgery consultation. No endoleak was seen on prior study by report Mild colonic wall thickening, either due to incomplete distention or wall thickening from underlying inflammatory change from colitis. Tiny Nonobstructing renal calculi Subtle lobular contour of the liver, raising the question of mild cirrhosis RECOMMENDATIONS: As part of a quality control engineering technician process, the following is included for reference: Managing Abdominal Aortic Aneurysms 2.6-2.9 cm: Every 5 years* 3.0-3.4 cm: Every 3 years. 3.5-3.9 cm: Every 1 year. 4.0-4.4 cm: Every 1 year. Recommend vascular consultation. 4.5-5.4 cm: Every 6 months. Recommend vascular consultation. Greater than or equal to 5.5 cm: Referral to vascular surgeon. *For abdominal aortas with maximum diameter of 2.6-2.9 cm meeting criteria for AAA (>50% of proximal normal segment). Reference: J Vasc Surg. 2009 Jan;50(4 Suppl):S2-49 D/ / Bro Rowley MD / Bro Rowley MD Interpreting Provider: Bro Rowley MD Chest CT 04/29/17 11:41 IMPRESSION: Patchy opacities throughout the lungs, suggestive of postinflammatory -infectious change. There is underlying severe emphysema Scattered nodular densities are seen throughout the lungs. There is a growing nodular density seen in the right upper lobe adjacent to a large bleb. Previously the nodule measured 8-9 mm, however it now measures 1.5 cm. Recommend PET-CT when the patient is able Resolution of the elongated nodule in the left lower lobe described previously D/ / Bro Rowley MD / Bro Rowley MD Interpreting Provider: Bro Rowley MD Consult Discharge Plan - Plan Referrals: Solomon Smith, KUNAL [Primary Care Provider] - 1 week
[2017-04-30] MEDS: *HR* HYDROcodone/Acet 5/325 mg TABLET PO PRN ×2 (13:48→21:23)
[2017-04-30 17:22] LABS: % Iron Saturation 8 % (20-55); Ferritin 202 ng/ml (20-250); Iron 24 mcg/dL (65-175); Transferrin 219 mg/dL (203-362)
[2017-04-30 17:39] LABS: Folate 11.9 ng/mL (3.0-16.0)
[2017-04-30] MEDS ORDERED: Piperacillin/Tazobactam 3.375 GM VIAL ONE (17:52)
[2017-04-30] MEDS: *HR* LORazepam 1 MG TABLET PO PRN (21:19)
[2017-04-30] MEDS: Azithromycin 500 MG in D5% in Water 250 ML IVPB SCH (21:20)
[2017-05-01] MEDS ORDERED: D5% in Water 250 ML ONE (02:16)
[2017-05-01] MEDS: Piperacillin/Tazobactam 3.375 GM in D5% in Water (Mini-Bag+) 100 ML IVPB SCH ×2 (02:18→10:47)
[2017-05-01 04:54] LABS: Basophils % 0.1 %; Eosinophils % 0.2 %; Hematocrit 32.8 % (37.5-50.1); Hemoglobin 10.8 g/dL (12.9-16.9); Immature Granulocytes % 0.8 % (0-4); Lymphocytes # 1.9 K/mcL (0.6-4.6); Lymphocytes % 14.3 %; Mean Corpuscular HGB Conc 32.9 g/dL (31.6-35.5); Mean Corpuscular Hemoglobin 29.6 pg (28.0-33.3); Mean Corpuscular Volume 89.9 fL (83.0-100.0); Mean Platelet Volume 11.9 fL (9.4-12.4); Monocytes % 7.5 %; Platelet Count 183 K/mcL (140-400); Red Blood Count 3.65 M/mcL (4.19-5.50); Red Cell Distribution Width 15.8 % (11.5-14.5); Segmented Neutrophils % 77.1 %
[2017-05-01 05:13] LABS: BUN/Creatinine Ratio 17 (6-26); Blood Urea Nitrogen 16 mg/dL (8-23); Calcium 8.9 mg/dL (8.6-10.3); Carbon Dioxide 30 mEq/L (23-29); Chloride 106 mEq/L (98-107); Glucose 102 mg/dL (70-105); Osmolality,Calculated 293 (280-300); Potassium 3.9 mEq/L (3.5-5.1); Sodium 141 mEq/L (136-145); eGFR For African Americans > 60 (> 60); eGFR For Non-African Americans > 60 (> 60)
[2017-05-01] MEDS: *HR* LORazepam 1 MG TABLET PO PRN (07:41)
[2017-05-01] MEDS ORDERED: Cyanocobalamin (B-12) 1,000 MCG/ML VIAL IM ONE (09:38)
--- NOTE | 2017-05-01 09:45 | Discharge Summary ---
Date of Encounter: 05/01/17 Time of Encounter: 09:30 - Discharge Diagnosis (1) COPD with exacerbation Priority: Primary Status: Acute (2) Leukocytosis Priority: Secondary Status: Acute Qualifiers: Leukocytosis type: bandemia Qualified Code(s): D72.825 - Bandemia (3) Azotemia Priority: Secondary Status: Resolved (4) HTN (hypertension) Priority: Secondary Status: Chronic Qualifiers: Hypertension type: essential hypertension Qualified Code(s): I10 - Essential (primary) hypertension (5) DVT (deep venous thrombosis) Priority: Secondary Status: Chronic Qualifiers: DVT location: lower extremity Affected thrombotic vein of extremity: unspecified vein of extremity Chronicity: chronic Laterality: unspecified laterality Qualified Code(s): I82.509 - 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 of unspecified lower extremity (6) BPH (benign prostatic hyperplasia) Priority: Secondary Status: Chronic Qualifiers: Lower urinary tract symptom presence: symptoms absent Qualified Code(s): N40.0 - Benign prostatic hyperplasia without lower urinary tract symptoms (7) Anemia Priority: Secondary Status: Acute Qualifiers: Anemia type: unspecified type Qualified Code(s): D64.9 - Anemia, unspecified - Discharge Medications Prescriptions: Amoxicillin/Clavulanate [Augmentin] 875 mg PO BIDWM #8 tablet Ascorbic Acid [Vitamin C] 500 mg PO DAILY #30 tablet Azithromycin [Zithromax] 250 mg PO DAILY #4 tablet Cyanocobalamin (B-12) [Vitamin B12] 1,000 mcg PO DAILY #30 tablet Ferrous Sulfate 325 mg PO DAILY #30 tablet Lactobacillus [Culturelle] 1 each PO BID #8 cap.sprink Home Medications: Aspirin 81 mg PO DAILY 05/31/16 [History] Ipratropium/Albuterol Neb [Duoneb] 3 ml IH Q4HR 30 Days inhsol 06/04/16 [Rx] Atorvastatin [Lipitor] 80 mg PO DAILY 09/06/16 [History] amLODIPine [Norvasc] 5 mg PO DAILY 09/06/16 [History] Albuterol Sulfate [Ventolin Hfa] 2 puff IH Q4H PRN 09/14/16 [History] Metoprolol [Lopressor] 25 mg PO BID #60 tablet 09/28/16 [Rx] Apixaban [Eliquis] 5 mg PO BID 12/09/16 [History] BuPROPion XL (24 HR) [Wellbutrin Xl] 150 mg PO DAILY 04/29/17 [History] Buspirone HCl [Buspar] 10 mg PO BID 04/29/17 [History] Esomeprazole Magnesium [Nexium 24Hr] 40 mg PO DAILY 04/29/17 [History] Isosorbide MONOnitrate [Isosorbide Mononitrate] 30 mg PO DAILY 04/29/17 [History ] Tamsulosin [Flomax] 0.4 mg PO DAILY 04/29/17 [History] Amoxicillin/Clavulanate [Augmentin] 875 mg PO BIDWM #8 tablet 05/01/17 [Rx] Ascorbic Acid [Vitamin C] 500 mg PO DAILY #30 tablet 05/01/17 [Rx] Azithromycin [Zithromax] 250 mg PO DAILY #4 tablet 05/01/17 [Rx] Cyanocobalamin (B-12) [Vitamin B12] 1,000 mcg PO DAILY #30 tablet 05/01/17 [Rx] Ferrous Sulfate 325 mg PO DAILY #30 tablet 05/01/17 [Rx] Lactobacillus [Culturelle] 1 each PO BID #8 cap.sprink 05/01/17 [Rx] Allergies/Adverse Reactions: 3 Allergy/AdvReac Type Severity Reaction Status Date / Time No Known Allergies Allergy Verified 04/05/17 16:08 Date of admission: 04/30/17 14:46 Primary care physician: Solomon Smith CNP - Patient Status Disposition: Home, Self-Care Condition: Fair Overall status at discharge: patient is progressing back to baseline - Discharge Instructions Follow Up With: Solomon Smith CNP [Primary Care Provider] - 1 week - Diet and Activity Activity: resume usual activities as tolerated, wear oxygen at all times Diet: advance to your usual diet Hospital course: Mr. Box is a 72 year old male who came to emergency room stating he had onset of dyspnea earlier in the day while doing routine activities. There was no significant cough or chest pain. He was evaluated in emergency room and was felt to have exacerbation of COPD. He was [facility] floor for ongoing care needs. Initial orders were written by the emergency room physician. I saw him on April 29 and performed the history and physical. He was started on Levaquin in the emergency room. I ordered CT of chest, abdomen, and pelvis to further evaluate. The chest CT showed patchy opacities throughout the lungs with a 1.5 cm right upper lobe nodule enlarged from 8-9 mm on previous study October 2016. A PET-CT scan was recommended. The abdominal CT showed increased size of abdominal aortic aneurysm to 8.1 cm compared to 6.5 cm on 05/14/2015 study. I spoke with his vascular surgeon [office] at [facility] who recommended he be seen within 1-2 weeks for further evaluation. The patient's vascular surgeon and/or PCP should also coordinate further evaluation of the lung nodule. He was started on Zosyn and Zithromax after CT scan was reviewed. He had good clinical response with WBC decreasing to 13.0 with improvement in the left shift by day of discharge. He remained afebrile during his hospital stay. He will continue with antibiotics and probiotic for 4 additional days at discharge. Azotemia resolved with BUN and creatinine being 16 and 0.96 respectively on day of discharge with estimated GFR greater than 60. Anemia testing showed iron 24, transferrin saturation 8%, transferrin 219, ferritin 202, B12 233, and folate 11.9. He will be started on ferrous sulfate with vitamin C for the iron deficiency. He will be given a B12 injection IM and started on oral B12 replacement for B12 deficiency. He will follow with his PCP CHADD Smith CNP within 1 week. . - Time Spent with Patient Total time spent providing and/or coordinating discharge services: - Constitutional Vitals: Temp Pulse Resp BP Pulse Ox 98.2 F 75 17 114/74 95 05/01/17 07:08 05/01/17 07:08 05/01/17 07:08 05/01/17 07:08 05/01/17 07:08
[2017-05-01] MEDS: Aspirin 325 MG TABLET PO SCH (10:47)
[2017-05-01] MEDS: BuPROPion XL (24 HR) 150 MG TABLET PO SCH (10:47)
[2017-05-01] MEDS: Lactobacillus 1 EACH CAP.SPRINK PO SCH (10:47)
[2017-05-01] MEDS: Isosorbide MONOnitrate (24 HR) 30 MG TAB.ER.24H PO SCH (10:48)
[2017-05-01] MEDS: amLODIPine 5 MG TABLET PO SCH (10:49)
[2017-05-01] MEDS: Apixaban 5 MG TABLET PO SCH (10:49)
[2017-05-01] MEDS: *HR* HYDROcodone/Acet 5/325 mg TABLET PO PRN (10:55)
[2017-05-01 11:24] VITALS: BP 130/84
[2017-05-01] MEDS ORDERED: Piperacillin/Tazobactam 3.375 GM in Water for inj. (sterile) 20 ML 20 ML IVPB SCH (16:00)
[2017-05-01] MEDS ORDERED: Piperacillin/Tazobactam 3.375 GM in Water for inj. (sterile) 10 ML IVPB SCH (16:00)
--- NOTE | 2017-05-02 07:53 | Electrocardiograph Report ---
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
--- NOTE | 2017-05-02 07:53 | Electrocardiograph Report ---
[address] [place], [place] [address] Test Date: 2017-04-29 Pat Name: Solomon Box Department: [id number] Room: [facility] Gender: M Cras: Caesar : 1945 Requested By: Bruce Reynolds Order Number: [id number] Reading MD: Tylor Borjas MD Measurements Intervals [place] Rate: 112 P: 82 WV: 145 QRS: 5 QRSD: 91 T: -43 QT: 341 QTc: 407 Interpretive Statements SINUS TACHYCARDIA LOW QRS VOLTAGE IN EXTREMITY LEADS POSSIBLE INFERIOR MYOCARDIAL INFARCTION, OF INDETERMINATE AGE Electronically Signed On 05-02-2017 6:05:59 EST by Tylor Borjas MD
== END 2017-05-01 12:35 | disposition home or self-care (01) | DRG 190 ==
LOC: EMEROOPIK 23:16 → INPPIK 23:16
PROVIDERS: ADMIT Internal Medicine; ATTEND Internal Medicine

== ENCOUNTER 2017-09-07 21:37 | Inpatient (IN) ==
[2017-09-07] MEDS ORDERED: Albuterol 2.5 MG/3 ML NEBULIZER IH ONE (21:56)
[2017-09-07] MEDS ORDERED: Ipratropium/Albuterol Neb 3 ML IH ONE (21:56)
[2017-09-07] MEDS ORDERED: methylPREDNISolone 125 MG/2 ML VIAL IVP ONE (21:56)
--- NOTE | 2017-09-07 21:58 | Emergency Department Note ---
Disposition Clinical Impression: COPD exacerbation, COPD with exacerbation, COPD (chronic obstructive pulmonary disease) Disposition: Transfer Short-Term Hosp Condition: Fair Time of Disposition: 00:59 ( will admit) SOB HPI - General Chief Complaint: ED Shortness of Breath/Dyspnea Stated Complaint: Shortness of breath Time Seen by Provider: 09/07/17 21:57 Source: patient Mode of arrival: ambulatory Limitations: no limitations Nursing Notes Reviewed: Yes Vital Signs Reviewed: Yes - History of Present Illness Patient presents to the emergency department with complaints of shortness of breath. Patient has known COPD, and is oxygen dependent. Patient was seen here 2 days ago and the physician apparently wanted to admit the patient was he declined, presents because of worsening shortness of breath, and as a result presented for further evaluation this evening with his . Patient normally wears 2 L of oxygen by nasal cannula. Pt Subjective Complaint: shortness of breath Onset (ago): day(s) (Going for 2 days) Severity: moderate Consistency/Duration: intermittent Improves with: oxygen, rest Worsens with: exertion Known history of: COPD Associated symptoms: Reports: denies other symptoms Treatment prior to arrival: oxygen, bronchodilator - Related Data Home Medications Medication Instructions Recorded Confirmed Aspirin 81 mg PO DAILY 05/31/16 09/07/17 Albuterol Sulfate [Ventolin Hfa] 2 puff IH Q4H PRN 09/14/16 09/07/17 Apixaban [Eliquis] 5 mg PO BID 12/09/16 09/07/17 Esomeprazole Magnesium [Nexium 40 mg PO DAILY 04/29/17 09/07/17 24Hr] Isosorbide MONOnitrate [Isosorbide 30 mg PO DAILY 04/29/17 09/07/17 Mononitrate] Tamsulosin [Flomax] 0.4 mg PO DAILY 04/29/17 09/07/17 Buspirone HCl [Buspar] 10 mg PO BID 08/07/17 09/07/17 predniSONE [PredniSONE] 10 mg PO AD 08/22/17 09/07/17 Lactobacillus [Culturelle] 1 each PO BID 09/05/17 09/07/17 clonazePAM [Clonazepam] 0.5 mg PO HS 09/05/17 09/07/17 Amlodipine Besylate 5 mg PO DAILY 09/07/17 09/07/17 Ascorbic Acid [Vitamin C] 500 mg PO DAILY 09/07/17 09/07/17 Cyanocobalamin (B-12) [Vitamin B12] 1,000 mcg PO DAILY 09/07/17 09/07/17 buPROPion HCl [Zyban] 150 mg PO DAILY 09/07/17 09/07/17 Previous Rx's Medication Instructions Recorded Metoprolol [Lopressor] 25 mg PO BID #60 tablet 09/28/16 predniSONE [PredniSONE] 60 mg PO DAILY #5 tablet 09/05/17 Oxycodone HCl 5 mg PO DAILY 5 Days #5 tablet 09/06/17 Allergies Allergy/AdvReac Type Severity Reaction Status Date / Time No Known Allergies Allergy Verified 09/06/17 13:17 All systems ED: reviewed and negative except as stated. Constitutional: Reports: chills, weakness Respiratory: Reports: cough, dyspnea, wheezes Past Medical History - Past Medical History Medical history: Reports: aortic aneurysm, cancer, COPD, coronary artery disease , GERD, hyperlipidemia, hypertension Surgical history: Reports: angioplasty/stent, coronary bypass (CABG), other ( AAA endoscopic repair prior to this visit ) Psychiatric history: Reports: anxiety - Social History Smoking Status: Former smoker Smokeless Tobacco Status: No Alcohol use: Reports: none Drug use: Reports: none Physical Exam - General Limitations: no limitations General appearance: alert - Head Head exam: atraumatic, normocephalic, normal inspection - Eye Eye exam: Present: normal appearance, PERRL, EOMI - Expanded Eye Exam Pupils: Left: reactive - ENT ENT exam: normal exam, normal oropharynx, mucous membranes moist - Expanded ENT Exam External ear exam: Present: normal external inspection Mouth exam: Present: normal external inspection Teeth exam: Present: normal inspection Throat exam: Present: normal inspection - Neck Neck exam: Present: normal inspection, full ROM, trachea midline - Chest Chest inspection: Present: normal inspection, symmetric chest wall rise - Respiratory Respiratory exam: Present: respiratory distress, wheezes, accessory muscle use - Cardiovascular Cardiovascular exam: Present: regular rate, normal rhythm, normal heart sounds - Abdominal Exam Abdominal exam: Present: soft, Non-Tender. Absent: tenderness, distention, guarding, rebound, rigidity - Extremities Exam Extremities exam: Present: normal inspection, full ROM. Absent: tenderness, pedal edema - Expanded Upper Extremity Exam Shoulder exam: Present: normal inspection, full ROM Arm exam: Present: normal inspection, full ROM Elbow exam: Present: normal inspection, full ROM Forearm/Wrist exam: Present: normal inspection, full ROM Hand exam: Present: normal inspection, full ROM Vascular exam: Normal: capillary refill, radial pulse - Expanded Lower Extremity Exam Hip/Pelvis exam: Present: normal inspection, full ROM Upper leg exam: Present: normal inspection, full ROM Knee exam: Present: normal inspection, full ROM Lower leg exam: Present: normal inspection, full ROM Ankle exam: Present: normal inspection, full ROM Foot/toe exam: Present: normal inspection, full ROM Neurovascular/Tendon exam: Absent: motor deficit, sensory deficit, tendon deficit - Back Exam Back exam: Present: normal inspection, full ROM. Absent: tenderness - Neurological Exam Neurological exam: Present: alert, oriented X3 - Expanded Neurological Exam Patient oriented to: Present: person, place, time Coma Scale Eye Opening: Spontaneous Coma Scale Motor Response: Obeys Commands Coma Scale Verbal Response: Oriented Coma Scale Total: 15 - Psychiatric Psychiatric exam: Present: normal affect, normal mood - Skin Skin exam: Present: warm, dry, intact, normal color Course Course Narrative: Labs obtained IV was placed patient was given 125 Solu-Medrol IV, DuoNeb 1, albuterol nebulized solution 1. Vital Signs Temperature 98.3 F 09/07/17 21:44 Pulse Rate 109 09/07/17 21:44 Respiratory Rate 28 09/07/17 21:44 Blood Pressure 109/60 09/07/17 21:44 O2 Sat by Pulse Oximetry 94 09/07/17 21:44 Temperature 98.7 F 09/07/17 23:26 Pulse Rate 99 09/07/17 23:26 Respiratory Rate 19 09/07/17 23:26 Blood Pressure 118/62 09/07/17 23:26 O2 Sat by Pulse Oximetry 96 09/07/17 23:30 Oxygen Delivery Oxygen Delivery Nasal Cannula Shortness of Breath/Dyspnea - Differential Diagnosis Likely: acute exacerbation of chronic obstructive airways disease, congestive heart failure, pneumonia, asthma with exacerbation - Medical Records Medical records reviewed: Yes I reviewed the patient's medical records. - Lab Data Lab results reviewed: Yes I reviewed the patient's lab results. Result diagrams: 09/07/17 21:56 09/07/17 22:05 Lab Results 09/07/17 09/07/17 09/07/17 Range/Units 21:56 22:05 22:05 WBC 14.7 H D (4.3-11.1) K/mcL RBC 3.67 L (4.19-5.50) M/mcL Hgb 10.5 L (12.9-16.9) g/dL Hct 34.8 L (37.5-50.1) % MCV 94.8 (83.0-100.0) fL MCH 28.6 (28.0-33.3) pg MCHC 30.2 L (31.6-35.5) g/dL RDW 15.3 H (11.5-14.5) % Plt Count 214 (140-400) K/mcL MPV 11.4 (9.4-12.4) fL Immature Gran % 0.7 (0-4) % Seg Neutrophils % 83.7 % Lymphocytes % 8.7 % Monocytes % 6.8 % Eosinophils % 0.0 % Basophils % 0.1 % Neutrophils # 12.3 H (1.6-8.9) K/mcL Lymphocytes # 1.3 (0.6-4.6) K/mcL Monocytes # 1.0 (0.0-1.3) K/mcL Eosinophils # 0.0 (0.0-0.6) K/mcL Basophils # 0.0 (0.0-0.2) K/mcL PT 13.3 H (9.4-12.1) Seconds INR 1.2 APTT 28.5 (26.0-36.0) Seconds Sample Site ABG pH (7.32-7.45) pH Units ABG pCO2 (35-45) mmHg ABG pO2 (85-104) mmHg ABG HCO3 (21-27) mEq/L ABG Total CO2 (20-26) mEq/L ABG O2 Saturation (95-98) % ABG Base Excess (-2 to 3) mEq/L Roberth Test O2 Delivery Device Inspired O2 (1-15=lpm [id number]=%) Sodium 143 (136-145) mEq/L Potassium 4.3 (3.5-5.1) mEq/L Chloride 102 (98-107) mEq/L Carbon Dioxide 39 H (23-29) mEq/L BUN 17 (8-23) mg/dL Creatinine 1.02 (0.70-1.30) mg/dL Est GFR ( Amer) > 60 (> 60) Est GFR (Non-Af Amer) > 60 (> 60) BUN/Creatinine Ratio 17 (6-26) Glucose 114 H (70-105) mg/dL Calculated Osmolality 298 (280-300) Lactic Acid (0.5-2.2) mmol/L Calcium 9.6 (8.6-10.3) mg/dL Troponin I < 0.03 (< 0.04) ng/mL B-Natriuretic Peptide (Less than 100) pg/mL Person Notif of Crit 09/07/17 09/07/17 09/07/17 Range/Units 22:05 22:05 22:20 WBC (4.3-11.1) K/mcL RBC (4.19-5.50) M/mcL Hgb (12.9-16.9) g/dL Hct (37.5-50.1) % MCV (83.0-100.0) fL MCH (28.0-33.3) pg MCHC (31.6-35.5) g/dL RDW (11.5-14.5) % Plt Count (140-400) K/mcL MPV (9.4-12.4) fL Immature Gran % (0-4) % Seg Neutrophils % % Lymphocytes % % Monocytes % % Eosinophils % % Basophils % % Neutrophils # (1.6-8.9) K/mcL Lymphocytes # (0.6-4.6) K/mcL Monocytes # (0.0-1.3) K/mcL Eosinophils # (0.0-0.6) K/mcL Basophils # (0.0-0.2) K/mcL PT (9.4-12.1) Seconds INR APTT (26.0-36.0) Seconds Sample Site R Radial ABG pH 7.30 L (7.32-7.45) pH Units ABG pCO2 81 H* (35-45) mmHg ABG pO2 60 L (85-104) mmHg ABG HCO3 40 H (21-27) mEq/L ABG Total CO2 42 H (20-26) mEq/L ABG O2 Saturation 86 L (95-98) % ABG Base Excess 11 H (-2 to 3) mEq/L Roberth Test Positive O2 Delivery Device Cannula Inspired O2 4.0 (1-15=lpm [id number]=%) Sodium (136-145) mEq/L Potassium (3.5-5.1) mEq/L Chloride (98-107) mEq/L Carbon Dioxide (23-29) mEq/L BUN (8-23) mg/dL Creatinine (0.70-1.30) mg/dL Est GFR ( Amer) (> 60) Est GFR (Non-Af Amer) (> 60) BUN/Creatinine Ratio (6-26) Glucose (70-105) mg/dL Calculated Osmolality (280-300) Lactic Acid 1.7 (0.5-2.2) mmol/L Calcium (8.6-10.3) mg/dL Troponin I (< 0.04) ng/mL B-Natriuretic Peptide 258 H (Less than 100) pg/mL Person Notif of Crit Dr.Gloria Narayanan - Radiology Data Radiology results reviewed: Yes I reviewed the patient's radiology results. Chest x-ray portable shows no acute process - EKG Data EKG attestation: Yes I reviewed and interpreted this EKG. EKG results narrative: EKG shows a sinus tachycardic rhythm EKG shows normal: Reports: sinus rhythm Rate: Reports: tachycardia Rhythm: Reports: NSR [place]/QRS: Reports: normal
[2017-09-07 22:14] LABS: Basophils % 0.1 %; Hematocrit 34.8 % (37.5-50.1); Hemoglobin 10.5 g/dL (12.9-16.9); Immature Granulocytes % 0.7 % (0-4); Lymphocytes # 1.3 K/mcL (0.6-4.6); Lymphocytes % 8.7 %; Mean Corpuscular HGB Conc 30.2 g/dL (31.6-35.5); Mean Corpuscular Hemoglobin 28.6 pg (28.0-33.3); Mean Corpuscular Volume 94.8 fL (83.0-100.0); Mean Platelet Volume 11.4 fL (9.4-12.4); Monocytes % 6.8 %; Neutrophils # 12.3 K/mcL (1.6-8.9); Platelet Count 214 K/mcL (140-400); Red Blood Count 3.67 M/mcL (4.19-5.50); Red Cell Distribution Width 15.3 % (11.5-14.5); Segmented Neutrophils % 83.7 %
[2017-09-07 22:21] LABS: INR 1.2; Prothrombin Time 13.3 Seconds (9.4-12.1)
[2017-09-07 22:24] LABS: Activated Partial Thrombo Time 28.5 Seconds (26.0-36.0)
[2017-09-07 22:27] LABS: ABG Base Excess 11 mEq/L (-2 to 3); ABG HCO3 40 mEq/L (21-27); ABG Oxygen Saturation 86 % (95-98); ABG PCO2 81 mmHg (35-45); ABG PO2 60 mmHg (85-104); ABG TCO2 42 mEq/L (20-26)
[2017-09-07 22:31] LABS: BUN/Creatinine Ratio 17 (6-26); Blood Urea Nitrogen 17 mg/dL (8-23); Calcium 9.6 mg/dL (8.6-10.3); Carbon Dioxide 39 mEq/L (23-29); Chloride 102 mEq/L (98-107); Glucose 114 mg/dL (70-105); Osmolality,Calculated 298 (280-300); Potassium 4.3 mEq/L (3.5-5.1); Sodium 143 mEq/L (136-145); eGFR For African Americans > 60 (> 60); eGFR For Non-African Americans > 60 (> 60)
[2017-09-07] MEDS ORDERED: Naloxone 0.4 MG/ML INJ IVP PRN ×2 (22:31→23:32)
[2017-09-07 22:32] LABS: Troponin I < 0.03 ng/mL (< 0.04)
[2017-09-07] MEDS ORDERED: predniSONE 10 MG TABLET PO SCH ×2 (22:45→23:32)
[2017-09-08] MEDS: 0.9 % Sodium Chloride 1,000 ML IVC SCH ×2 (01:33→15:41)
[2017-09-08] MEDS ORDERED: Cyanocobalamin (B-12) 1,000 MCG TABLET PO SCH (09:00)
[2017-09-08] MEDS: Apixaban 5 MG TABLET PO SCH ×2 (09:00→20:55)
[2017-09-08] MEDS ORDERED: *HR* OxyCODONE Immed Rel 5 MG TABLET PO SCH (09:00)
[2017-09-08] MEDS ORDERED: predniSONE 20 MG TABLET PO SCH ×3 (09:00→17:00)
[2017-09-08] MEDS ORDERED: BuPROPion XL (24 HR) 150 MG TABLET PO SCH (09:00)
[2017-09-08] MEDS: Aspirin 81 MG TAB.CHEW PO SCH (09:00)
[2017-09-08] MEDS ORDERED: Apixaban 5 MG TABLET PO SCH (09:00)
[2017-09-08] MEDS ORDERED: Aspirin 325 MG TABLET PO SCH (09:00)
[2017-09-08] MEDS ORDERED: amLODIPine 5 MG TABLET PO SCH (09:00)
[2017-09-08] MEDS ORDERED: Isosorbide MONOnitrate (24 HR) 30 MG TAB.ER.24H PO SCH (09:00)
[2017-09-08] MEDS ORDERED: Ascorbic Acid 500 MG TABLET PO SCH (09:00)
[2017-09-08] MEDS: *HR* OxyCODONE Immed Rel 5 MG TABLET PO SCH (09:01)
[2017-09-08] MEDS: Cyanocobalamin (B-12) 1,000 MCG TABLET PO SCH (09:01)
[2017-09-08] MEDS: Isosorbide MONOnitrate (24 HR) 30 MG TAB.ER.24H PO SCH (09:01)
[2017-09-08] MEDS: Ascorbic Acid 500 MG TABLET PO SCH (09:02)
[2017-09-08] MEDS: BuPROPion XL (24 HR) 150 MG TABLET PO SCH (09:02)
[2017-09-08] MEDS: amLODIPine 5 MG TABLET PO SCH (09:03)
[2017-09-08] MEDS: clonazePAM 0.5 MG TABLET PO PRN ×2 (10:28→21:03)
--- NOTE | 2017-09-08 14:51 | Internal Med History&Physical ---
Date of Encounter: 09/08/17 Time of Encounter: 14:15 Assessment and Plan (1) Acute exacerbation of chronic obstructive airways disease Current visit: No Status: Acute He was given IV steroids in emergency room. Will start antibiotics and continue aggressive pulmonary regimen. (2) HTN (hypertension) Current visit: No Status: Chronic Continue Norvasc and Lopressor. Qualifiers: Hypertension type: essential hypertension Qualified Code(s): I10 - Essential (primary) hypertension (3) Anemia Current visit: No Status: Acute will order anemia testing in a.m. Qualifiers: Anemia type: unspecified type Qualified Code(s): D64.9 - Anemia, unspecified Internal Medicine - H&P: HPI Chief complaint: Dyspnea Admitted From: Emergency Dept Plans for Post Hospital Care: Home History of present illness: Mr. Box is a 72 year old male who came to emergency room the evening of admission stating he had not improved after an ER visit 09/05/2017 for dyspnea. He declined admission stating he wanted to follow up with his radiation oncologist. He was discharged on Z-Brian and prednisone. His dyspnea worsened and he of cough productive of yellow sputum and ran low-grade fever. He came back to emergency room and evaluated and felt to have exacerbation of COPD and was admitted to [facility] floor for ongoing care needs. His respiratory history is significant for having smoked from age [age] up to 3 packs per day. He had spirometry 01/05/2016 which showed FVC 52% with FEV1/FVC ratio of 0.45. He wears oxygen 24/7 at home. He had a lung mass biopsy November 2016 which did not show malignancy. The procedure was completed by pneumothorax. A PET CT scan was done 06/13/2017 to further evaluate nodule seen on a previous chest CT. Findings were consistent for malignancy and he was referred to radiation oncology and medical oncology at [facility]. He reports he has been tentatively diagnosed with non-small cell lung cancer but denies tissue biopsy being obtained. He reports he will start XRT within 2 weeks. Past Med Surg Social Fam HX - Past Medical History Medical history: aortic aneurysm, cancer, COPD, coronary artery disease, GERD, hyperlipidemia, hypertension Additional medical history: 4 way bipass in September 2016. Biopsy of lung in November aortic aneurism in 2008 Psychiatric history: anxiety - Past Surgical History Surgical History: angioplasty/stent, coronary bypass (CABG), other (AAA endoscopic repair prior to this visit ) Additional surgical history: AAA repair. LEFT INGUINAL HERNIA REPAIR - Social History Smoking Status: Former smoker Smokeless Tobacco Status: No Alcohol use: none Drug use: none - Family History Mother Living Status: Hx Family Cardiac Disorders: Yes (chf) Brother Living Status: Still Living Hx Family Endocrine Disorder: Yes (dm) Internal Medicine - H&P: Meds Aspirin 81 mg PO DAILY 05/31/16 [History] Albuterol Sulfate [Ventolin Hfa] 2 puff IH Q4H PRN 09/14/16 [History] Metoprolol [Lopressor] 25 mg PO BID #60 tablet 09/28/16 [Rx] Apixaban [Eliquis] 5 mg PO BID 12/09/16 [History] Esomeprazole Magnesium [Nexium 24Hr] 40 mg PO DAILY 04/29/17 [History] Isosorbide MONOnitrate [Isosorbide Mononitrate] 30 mg PO DAILY 04/29/17 [History ] Tamsulosin [Flomax] 0.4 mg PO DAILY 04/29/17 [History] Buspirone HCl [Buspar] 10 mg PO BID 08/07/17 [History] predniSONE [PredniSONE] 10 mg PO AD 08/22/17 [History] Lactobacillus [Culturelle] 1 each PO BID 09/05/17 [History] clonazePAM [Clonazepam] 0.5 mg PO HS 09/05/17 [History] predniSONE [PredniSONE] 60 mg PO DAILY #5 tablet 09/05/17 [Rx] Oxycodone HCl 5 mg PO DAILY 5 Days #5 tablet 09/06/17 [Rx] Amlodipine Besylate 5 mg PO DAILY 09/07/17 [History] Ascorbic Acid [Vitamin C] 500 mg PO DAILY 09/07/17 [History] Cyanocobalamin (B-12) [Vitamin B12] 1,000 mcg PO DAILY 09/07/17 [History] buPROPion HCl [Zyban] 150 mg PO DAILY 09/07/17 [History] 3 Allergy/AdvReac Type Severity Reaction Status Date / Time No Known Allergies Allergy Verified 09/06/17 13:17 All Systems PM: A 10-system review of systems was performed and is negative for pertinent findings except as documented above in the HPI. Review of systems: Review of systems from his April 2017 [facility] hospitalization were reviewed and revised as below. Gen.: His weight has been stable at approximately 75 kg the past few months Cardiovascular: He has history of hypertension and known ASHD status post [place] approximately 2007. 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 He has had aortic endograft done for aortic aneurysm. He had DVT after the CABG surgery and is now on Eliquis. He denies heart failure or pulmonary embolus. He had an echocardiogram 11/16/2016 which showed LVEF of 65%. There was [id number] tricuspid regurgitation and elevated RVSP at 43 mmHg. he had endograft of aorta and iliac arteries July 2017 at [facility] for aneurysms. Respiratory: As per history of present illness GI: He has constipation and GERD. He denies other disorders of his liver gallbladder or exocrine pancreas. He was told in the past he had "abdominal mass " but does not know details. : He denies known kidney or bladder disorders. He had prostate biopsy in the past without malignancy found. He has BPH. He denies chronic kidney disease or known azotemia. Neurologic: He denies large distribution strokes or seizures. Endocrine: He has hyperlipidemia but denies diabetes or thyroid disease Hematology/oncology: He has probable NSCLC as per above. He had anemia on labs in emergency room. Psychiatric: He has anxiety and depression but denies other mental health issues Muscle skeletal: He has DJD. He had a work accident several years ago with injury to his back and fracture of his left foot which required surgical intervention. He denies gout or other bone joint or muscle disorders. - Constitutional Vitals: Temp Pulse Resp BP Pulse Ox 97.6 F 82 18 130/75 92 09/08/17 11:43 09/08/17 11:43 09/08/17 11:43 09/08/17 11:43 09/08/17 12:14 Exam: Gen.: He is a well-developed well-nourished male sitting on the side of bed who appears dyspneic at rest HEENT: Head is atraumatic and normocephalic. Eyes: EOMI. There is no scleral icterus. Mouth: Mucosa is moist. Neck: Supple and nontender. There is no thyromegaly or adenopathy noted. Heart: Regular without murmurs gallops or ectopics Lungs: He has prolonged expiratory phase. No wheezing is heard. There is egophony diffusely in posterior lung bermeo. Back: Straight without flank tenderness or presacral edema Abdomen: He has XRT boundary markings on his abdominal wall. No masses or guarding are noted. Extremities: There is no cyanosis edema or clubbing noted. Dorsalis pedis and posttibial pulses are trace palpable bilaterally. Neurologic: Mental status: He is talkative and a good historian. Cranial nerves : Smile is symmetric. Forehead wrinkles bilaterally. Tongue protrudes midline. EOMI. Motor: There is no pronator drift. Cerebellar: Finger to nose is intact bilaterally. Skin: Warm and dry Internal Med - H&P Results - Labs CBC & Chem 7: 09/07/17 21:56 09/07/17 22:05
[2017-09-08] MEDS: cefTRIAXone 1,000 MG in 0.9 % Sodium Chloride Mini Bag 100 ML IVPB SCH (15:43)
[2017-09-08] MEDS: Doxycycline 100 MG in 0.9 % Sodium Chloride Mini Bag 100 ML IVPB SCH (19:00)
[2017-09-08] MEDS ORDERED: Albuterol Neb 1.25 MG/3 ML VIAL IH PRN (19:33)
[2017-09-08] MEDS: Albuterol 2.5 MG/3 ML NEBULIZER IH PRN (20:10)
[2017-09-08] MEDS: Lactobacillus 1 EACH CAP.SPRINK PO SCH (20:55)
[2017-09-08] MEDS ORDERED: clonazePAM 0.5 MG TABLET PO SCH ×2 (21:00)
[2017-09-08] MEDS ORDERED: predniSONE 20 MG TABLET PO STA (22:25)
[2017-09-09] MEDS: Albuterol 2.5 MG/3 ML NEBULIZER IH PRN ×3 (00:26→19:40)
[2017-09-09 05:04] LABS: Basophils % 0.1 %; Hematocrit 33.5 % (37.5-50.1); Hemoglobin 10.3 g/dL (12.9-16.9); Immature Granulocytes % 1.5 % (0-4); Lymphocytes # 0.7 K/mcL (0.6-4.6); Lymphocytes % 7.1 %; Mean Corpuscular HGB Conc 30.7 g/dL (31.6-35.5); Mean Corpuscular Hemoglobin 28.9 pg (28.0-33.3); Mean Corpuscular Volume 94.1 fL (83.0-100.0); Mean Platelet Volume 12.5 fL (9.4-12.4); Monocytes # 0.5 K/mcL (0.0-1.3); Monocytes % 4.8 %; Neutrophils # 9.1 K/mcL (1.6-8.9); Platelet Count 190 K/mcL (140-400); Red Blood Count 3.56 M/mcL (4.19-5.50); Red Cell Distribution Width 14.9 % (11.5-14.5); Segmented Neutrophils % 86.5 %
[2017-09-09 05:36] LABS: Alanine Aminotransferase 7 Units/L (7-52); Albumin 3.5 g/dL (3.5-5.7); Albumin/Globulin Ratio 1.5 (1.1-2.2); Alkaline Phosphatase 53 Units/L (34-104); Aspartate Amino Transferase 9 Units/L (13-39); BUN/Creatinine Ratio 21 (6-26); Bilirubin,Total 0.2 mg/dL (0.3-1.0); Blood Urea Nitrogen 16 mg/dL (8-23); Calcium 9.2 mg/dL (8.6-10.3); Carbon Dioxide 41 mEq/L (23-29); Chloride 101 mEq/L (98-107); Globulin 2.3 g/dL (2.4-3.5); Glucose 143 mg/dL (70-105); Osmolality,Calculated 300 (280-300); Potassium 4.6 mEq/L (3.5-5.1); Sodium 143 mEq/L (136-145); Total Protein 5.8 g/dL (6.4-8.9); eGFR For African Americans > 60 (> 60); eGFR For Non-African Americans > 60 (> 60)
[2017-09-09] MEDS: Doxycycline 100 MG in 0.9 % Sodium Chloride Mini Bag 100 ML IVPB SCH ×2 (06:52→17:55)
[2017-09-09] MEDS: *HR* OxyCODONE Immed Rel 5 MG TABLET PO SCH (08:42)
[2017-09-09] MEDS: BuPROPion XL (24 HR) 150 MG TABLET PO SCH (08:42)
[2017-09-09] MEDS: Ascorbic Acid 500 MG TABLET PO SCH ×2 (08:43→19:10)
[2017-09-09] MEDS: Isosorbide MONOnitrate (24 HR) 30 MG TAB.ER.24H PO SCH (08:43)
[2017-09-09] MEDS: Cyanocobalamin (B-12) 1,000 MCG TABLET PO SCH (08:43)
[2017-09-09] MEDS: predniSONE 20 MG TABLET PO SCH ×2 (08:43→17:55)
[2017-09-09] MEDS: amLODIPine 5 MG TABLET PO SCH (08:44)
[2017-09-09] MEDS: Apixaban 5 MG TABLET PO SCH ×2 (08:44→20:25)
[2017-09-09] MEDS: Aspirin 81 MG TAB.CHEW PO SCH (08:44)
[2017-09-09] MEDS: Lactobacillus 1 EACH CAP.SPRINK PO SCH ×2 (08:45→20:24)
[2017-09-09] MEDS: clonazePAM 0.5 MG TABLET PO PRN (08:50)
[2017-09-09 10:39] LABS: % Iron Saturation 11 % (20-55); Ferritin 44 ng/ml (20-250); Iron 33 mcg/dL (65-175); Transferrin 224 mg/dL (203-362)
--- NOTE | 2017-09-09 14:31 | Internal Med Progress Note ---
Date of Encounter: 09/09/17 Time of Encounter: 14:20 - Assessment and plan (1) Acute exacerbation of chronic obstructive airways disease Current Visit: No Status: Acute Assessment and plan: September 09. Continue Rocephin, doxycycline, and lactobacillus with present pulmonary regimen. Anticipate discharge home tomorrow if stable. (2) HTN (hypertension) Current Visit: No Status: Chronic Assessment and plan: September 09. Continue Norvasc and Lopressor. Qualifiers: Hypertension type: essential hypertension Qualified Code(s): I10 - Essential (primary) hypertension (3) Anemia Current Visit: No Status: Acute Assessment and plan: September 09. Anemia testing consistent with iron deficiency. Will start ferrous sulfate with vitamin C in a.m. Qualifiers: Anemia type: unspecified type Qualified Code(s): D64.9 - Anemia, unspecified - Subjective Interval history: September 09. He has no new complaints. - Constitutional Vitals: Temp Pulse Resp BP Pulse Ox 97.1 F L 77 18 144/77 98 09/09/17 12:20 09/09/17 12:20 09/09/17 12:20 09/09/17 12:20 09/09/17 12:20 Exam: He is resting comfortable on the side of bed and appears in no acute distress. His affect is cheerful overall. I reviewed his medications and lab results. Internal Medicine: Result - Labs CBC & Chem 7: 09/09/17 04:13 09/09/17 04:13 Labs: Short CBC 09/09/17 Range/Units 04:13 WBC 10.5 (4.3-11.1) K/mcL Hgb 10.3 L (12.9-16.9) g/dL Hct 33.5 L (37.5-50.1) % Plt Count 190 (140-400) K/mcL Neutrophils # 9.1 H (1.6-8.9) K/mcL BMP 09/09/17 04:13 Sodium 143 Potassium 4.6 Chloride 101 Carbon Dioxide 41 H* BUN 16 Creatinine 0.75 Glucose 143 H Calcium 9.2 Liver Function 09/09/17 Range/Units 04:13 Total Bilirubin 0.2 L (0.3-1.0) mg/dL AST 9 L (13-39) Units/L ALT 7 (7-52) Units/L Alkaline Phosphatase 53 (34-104) Units/L Albumin 3.5 (3.5-5.7) g/dL - ABG Interpretation ABG results: ABG ABG pH 7.30 pH Units (7.32-7.45) L 09/07/17 22:20 ABG pCO2 81 mmHg (35-45) H* 09/07/17 22:20 ABG pO2 60 mmHg (85-104) L 09/07/17 22:20 ABG O2 Saturation 86 % (95-98) L 09/07/17 22:20 PT/INR, D-dimer PT 13.3 Seconds (9.4-12.1) H 09/07/17 22:05 Consult Discharge Plan - Plan Referrals: Solomon Smith, VASCULAR PHYSICIAN [Primary Care Provider] - 1 week
[2017-09-09] MEDS: cefTRIAXone 1,000 MG in 0.9 % Sodium Chloride Mini Bag 100 ML IVPB SCH (15:29)
[2017-09-09 20:07] LABS: ABG Base Excess 10 mEq/L (-2 to 3); ABG HCO3 43 mEq/L (21-27); ABG Oxygen Saturation 96 % (95-98); ABG PCO2 119 mmHg (35-45); ABG PH 7.17 pH Units (7.32-7.45); ABG PO2 112 mmHg (85-104); ABG TCO2 47 mEq/L (20-26)
[2017-09-09 22:42] LABS: ABG Base Excess 14 mEq/L (-2 to 3); ABG HCO3 44 mEq/L (21-27); ABG Oxygen Saturation 98 % (95-98); ABG PCO2 92 mmHg (35-45); ABG PH 7.28 pH Units (7.32-7.45); ABG PO2 122 mmHg (85-104); ABG TCO2 47 mEq/L (20-26)
[2017-09-10 07:15] LABS: ABG Base Excess 16 mEq/L (-2 to 3); ABG HCO3 45 mEq/L (21-27); ABG Oxygen Saturation 98 % (95-98); ABG PCO2 93 mmHg (35-45); ABG PO2 124 mmHg (85-104); ABG TCO2 48 mEq/L (20-26)
[2017-09-10] MEDS: Cyanocobalamin (B-12) 1,000 MCG TABLET PO SCH (08:15)
[2017-09-10] MEDS: amLODIPine 5 MG TABLET PO SCH (08:15)
[2017-09-10] MEDS: Aspirin 81 MG TAB.CHEW PO SCH (08:15)
[2017-09-10] MEDS: Lactobacillus 1 EACH CAP.SPRINK PO SCH ×2 (08:15→20:38)
[2017-09-10] MEDS: Apixaban 5 MG TABLET PO SCH ×2 (08:16→20:38)
[2017-09-10] MEDS: Isosorbide MONOnitrate (24 HR) 30 MG TAB.ER.24H PO SCH (08:16)
[2017-09-10] MEDS: BuPROPion XL (24 HR) 150 MG TABLET PO SCH (08:16)
[2017-09-10] MEDS: *HR* OxyCODONE Immed Rel 5 MG TABLET PO SCH (08:16)
[2017-09-10] MEDS: Doxycycline 100 MG in 0.9 % Sodium Chloride Mini Bag 100 ML IVPB SCH ×2 (08:17→19:30)
[2017-09-10] MEDS: Ascorbic Acid 500 MG TABLET PO SCH (10:57)
--- NOTE | 2017-09-10 11:26 | Internal Med Progress Note ---
Date of Encounter: 09/10/17 Time of Encounter: 11:15 - Assessment and plan (1) Acute exacerbation of chronic obstructive airways disease Current Visit: No Status: Acute Assessment and plan: September 09. Continue Rocephin, doxycycline, and lactobacillus with present pulmonary regimen. Anticipate discharge home tomorrow if stable. September 10. Continue present regimen. Will not discharge home today. (2) HTN (hypertension) Current Visit: No Status: Chronic Assessment and plan: September 09. Continue Norvasc and Lopressor. Qualifiers: Hypertension type: essential hypertension Qualified Code(s): I10 - Essential (primary) hypertension (3) Anemia Current Visit: No Status: Acute Assessment and plan: September 09. Anemia testing consistent with iron deficiency. Will start ferrous sulfate with vitamin C in a.m. Qualifiers: Anemia type: unspecified type Qualified Code(s): D64.9 - Anemia, unspecified - Subjective Interval history: September 09. He has no new complaints. September 10. He has no new complaints. He had acute respiratory insufficiency last evening with ABG pH decreasing to 7.17 and PCO2 rising to 119. He was placed on BiPAP and has now improved. - Constitutional Vitals: Temp Pulse Resp BP Pulse Ox 98.3 F 75 16 118/68 81 09/10/17 10:00 09/10/17 10:00 09/10/17 10:00 09/10/17 10:09/10/17 10:00 Exam: He is resting comfortably in bed and presently wearing BiPAP. His affect is cheerful. I reviewed his medications and lab results. Internal Medicine: Result - Labs CBC & Chem 7: 09/09/17 04:13 09/09/17 04:13 - ABG Interpretation ABG results: ABG ABG pH 7.30 pH Units (7.32-7.45) L 09/10/17 07:10 ABG pCO2 93 mmHg (35-45) H* 09/10/17 07:10 ABG pO2 124 mmHg (85-104) H 09/10/17 07:10 ABG O2 Saturation 98 % (95-98) 09/10/17 07:10 PT/INR, D-dimer PT 13.3 Seconds (9.4-12.1) H 09/07/17 22:05 Consult Discharge Plan - Plan Referrals: Solomon Smith, [employer]OURER [Primary Care Provider] - 1 week
[2017-09-10] MEDS: Albuterol 2.5 MG/3 ML NEBULIZER IH PRN ×3 (12:26→19:18)
[2017-09-10] MEDS: cefTRIAXone 1,000 MG in 0.9 % Sodium Chloride Mini Bag 100 ML IVPB SCH (15:32)
[2017-09-10] MEDS: predniSONE 20 MG TABLET PO SCH (20:08)
[2017-09-10] MEDS: ALPRAZolam 0.5 MG TABLET PO PRN (20:37)
[2017-09-10] MEDS: clonazePAM 0.5 MG TABLET PO PRN (22:25)
[2017-09-10] MEDS: 0.9 % Sodium Chloride 1,000 ML IVC SCH (22:55)
[2017-09-11 04:24] LABS: Basophils % 0.2 %; Eosinophils # 0.1 K/mcL (0.0-0.6); Eosinophils % 1.7 %; Hematocrit 32.2 % (37.5-50.1); Hemoglobin 9.8 g/dL (12.9-16.9); Immature Granulocytes % 1.6 % (0-4); Lymphocytes # 1.9 K/mcL (0.6-4.6); Lymphocytes % 23.4 %; Mean Corpuscular HGB Conc 30.4 g/dL (31.6-35.5); Mean Corpuscular Hemoglobin 28.5 pg (28.0-33.3); Mean Corpuscular Volume 93.6 fL (83.0-100.0); Monocytes # 1.1 K/mcL (0.0-1.3); Monocytes % 13.1 %; Neutrophils # 4.8 K/mcL (1.6-8.9); Platelet Count 182 K/mcL (140-400); Red Blood Count 3.44 M/mcL (4.19-5.50); Red Cell Distribution Width 14.6 % (11.5-14.5)
[2017-09-11 04:48] LABS: BUN/Creatinine Ratio 21 (6-26); Blood Urea Nitrogen 17 mg/dL (8-23); Calcium 8.7 mg/dL (8.6-10.3); Chloride 96 mEq/L (98-107); Glucose 92 mg/dL (70-105); Osmolality,Calculated 293 (280-300); Potassium 3.8 mEq/L (3.5-5.1); Sodium 141 mEq/L (136-145); eGFR For African Americans > 60 (> 60); eGFR For Non-African Americans > 60 (> 60)
[2017-09-11 05:01] LABS: Carbon Dioxide 45 mEq/L (23-29)
[2017-09-11] MEDS: Doxycycline 100 MG in 0.9 % Sodium Chloride Mini Bag 100 ML IVPB SCH ×2 (06:14→19:17)
[2017-09-11] MEDS: ALPRAZolam 0.5 MG TABLET PO PRN ×2 (06:15→20:40)
[2017-09-11] MEDS: Ascorbic Acid 500 MG TABLET PO SCH (06:15)
[2017-09-11 07:46] LABS: ABG Base Excess 17 mEq/L (-2 to 3); ABG HCO3 48 mEq/L (21-27); ABG Oxygen Saturation 92 % (95-98); ABG PCO2 92 mmHg (35-45); ABG PH 7.32 pH Units (7.32-7.45); ABG PO2 74 mmHg (85-104); ABG TCO2 51 mEq/L (20-26)
[2017-09-11] MEDS: Apixaban 5 MG TABLET PO SCH ×2 (07:52→21:30)
[2017-09-11] MEDS: amLODIPine 5 MG TABLET PO SCH (07:52)
[2017-09-11] MEDS: Isosorbide MONOnitrate (24 HR) 30 MG TAB.ER.24H PO SCH (07:53)
[2017-09-11] MEDS: *HR* OxyCODONE Immed Rel 5 MG TABLET PO SCH (07:53)
[2017-09-11] MEDS: Lactobacillus 1 EACH CAP.SPRINK PO SCH ×2 (07:53→20:39)
[2017-09-11] MEDS: Aspirin 81 MG TAB.CHEW PO SCH (07:53)
[2017-09-11] MEDS: Cyanocobalamin (B-12) 1,000 MCG TABLET PO SCH (07:53)
[2017-09-11] MEDS: BuPROPion XL (24 HR) 150 MG TABLET PO SCH (08:06)
[2017-09-11] MEDS: Albuterol 2.5 MG/3 ML NEBULIZER IH PRN ×4 (09:07→20:33)
--- NOTE | 2017-09-11 15:52 | Electrocardiograph Report ---
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
[2017-09-11] MEDS: cefTRIAXone 1,000 MG in 0.9 % Sodium Chloride Mini Bag 100 ML IVPB SCH (15:56)
[2017-09-11 19:38] VITALS: BP 118/66
--- NOTE | 2017-09-12 12:06 | Discharge Summary ---
Date of Encounter: 09/11/17 Time of Encounter: 16:15 - Discharge Diagnosis (1) Acute exacerbation of chronic obstructive airways disease Priority: Primary Status: Acute (2) HTN (hypertension) Priority: Secondary Status: Chronic Qualifiers: Hypertension type: essential hypertension Qualified Code(s): I10 - Essential (primary) hypertension (3) Anemia Priority: Secondary Status: Acute Qualifiers: Anemia type: unspecified type Qualified Code(s): D64.9 - Anemia, unspecified Hospital course: Mr. Box is a 72 year old male who came to emergency room the evening of admission stating he had not improved after an ER visit 09/05/2017 for dyspnea. He declined admission stating he wanted to follow up with his radiation oncologist. He was discharged on Z-Brian and prednisone. His dyspnea worsened and he of cough productive of yellow sputum and ran low-grade fever. He came back to emergency room and evaluated and felt to have exacerbation of COPD and was admitted to [facility] floor for ongoing care needs. Initial orders were written by the emergency room physician. I saw him on September 08 and performed the history and physical. IV fluids and antibiotics in emergency room. His dyspnea improved slightly but he continued to have hypoxemia and periods of respiratory insufficiency and required application of BiPAP. He had numerous episodes of desaturation when attempt to discontinue BiPAP was made. After a long discussion with family on September 11 it was agreed he could be transferred to [facility] for further evaluation for his COPD and respiratory insufficiency. He also expressed interest in having oncology evaluate his cancer status. - Time Spent with Patient Total time spent providing and/or coordinating discharge services: - Discharge Medications Home Medications: Aspirin 81 mg PO DAILY 05/31/16 [History] Albuterol Sulfate [Ventolin Hfa] 2 puff IH Q4H PRN 09/14/16 [History] Metoprolol [Lopressor] 25 mg PO BID #60 tablet 09/28/16 [Rx] Apixaban [Eliquis] 5 mg PO BID 12/09/16 [History] Esomeprazole Magnesium [Nexium 24Hr] 40 mg PO DAILY 04/29/17 [History] Isosorbide MONOnitrate [Isosorbide Mononitrate] 30 mg PO DAILY 04/29/17 [History ] Tamsulosin [Flomax] 0.4 mg PO DAILY 04/29/17 [History] Buspirone HCl [Buspar] 10 mg PO BID 08/07/17 [History] predniSONE [PredniSONE] 10 mg PO AD 08/22/17 [History] Lactobacillus [Culturelle] 1 each PO BID 09/05/17 [History] clonazePAM [Clonazepam] 0.5 mg PO HS 09/05/17 [History] predniSONE [PredniSONE] 60 mg PO DAILY #5 tablet 09/05/17 [Rx] Oxycodone HCl 5 mg PO DAILY 5 Days #5 tablet 09/06/17 [Rx] Amlodipine Besylate 5 mg PO DAILY 09/07/17 [History] Ascorbic Acid [Vitamin C] 500 mg PO DAILY 09/07/17 [History] Cyanocobalamin (B-12) [Vitamin B12] 1,000 mcg PO DAILY 09/07/17 [History] buPROPion HCl [Zyban] 150 mg PO DAILY 09/07/17 [History] Allergies/Adverse Reactions: 3 Allergy/AdvReac Type Severity Reaction Status Date / Time No Known Allergies Allergy Verified 09/06/17 13:17 Date of admission: 09/07/17 22:44 Primary care physician: Solomon Smith CNP Consults: 09/07/17 23:54 Consult to Nutrition [CONS] Routine Comment: Consulting Provider: NUTRITION Reason for Dietary Consult: Diet Education Consult to Laborer Hoisting [CONS] Routine Reason for SW Consult: Living will information requested. - Constitutional Vitals: Temp Pulse Resp BP Pulse Ox 98.2 F 75 18 118/66 96 09/11/17 19:33 09/11/17 19:33 09/11/17 20:33 09/11/17 19:33 09/11/17 20:33 - Patient Status Disposition: Transfer Other Condition: Fair - Discharge Instructions Follow Up With: Solomon Smith CNP [Primary Care Provider] - 1 week
== END 2017-09-11 22:00 | disposition other institution (70) | DRG 191 ==
LOC: INPPIK 21:37 → EMEROOPIK 21:37 → INPPIK 23:05
PROVIDERS: ADMIT Internal Medicine; ATTEND Internal Medicine